=== PATIENT | female | born 1945 | race Caucasian/White ===

== ENCOUNTER 2016-12-18 12:10 | Inpatient (IN) | payer OTHER, MEDICARE ==
[~2016-12-18] VITALS: Ht 160 cm; Wt 56.2 kg
--- NOTE | 2016-12-18 12:25 | NUR ---
DR OVALLES AT THE BEDSIDE.
[2016-12-18] MEDS ORDERED: GLIM1TAB3 PO (12:30)
[2016-12-18] MEDS ORDERED: OLME20TA23 PO (12:30)
[2016-12-18] MEDS ORDERED: ACET650T10 PO (12:30)
[2016-12-18] MEDS ORDERED: ONDANSETRON 4 MG/2 ML VIAL IV ONE (12:30)
[2016-12-18] MEDS ORDERED: IV NORMAL SALINE 1000 ML BAG IV ONE (12:30)
[2016-12-18] MEDS ORDERED: AMYL1CAP58 PO (12:30)
[2016-12-18] MEDS ORDERED: METO-306 PO (12:30)
[2016-12-18] MEDS ORDERED: RANI300T4 PO (12:30)
[2016-12-18] MEDS ORDERED: COLE625T PO (12:30)
[2016-12-18] MEDS ORDERED: MORPHINE SULFATE 2 MG/1 ML DISP.SYRIN IV ONE (12:30)
[2016-12-18] MEDS ORDERED: DEXL60CA3 PO (12:30)
[2016-12-18 12:36] LABS: BASOPHILS # (AUTO) 0.1 K/uL (0.0-0.2); BASOPHILS % (AUTO) 1.2 % (0.0-2.0); EOSINOPHILS # (AUTO) 0.2 K/uL (0.0-0.7); EOSINOPHILS % (AUTO) 3.1 % (0.0-7.0); HEMATOCRIT 42.3 % (37.0-47.0); HEMOGLOBIN 13.9 g/dL (12.0-16.0); LYMPHOCYTES # (AUTO) 1.5 K/uL (0.8-4.8); LYMPHOCYTES % (AUTO) 28.4 % (20.5-51.5); MEAN CORPUSCULAR HEMOGLOBIN 30.5 uug (27.0-31.0); MEAN CORPUSCULAR HGB CONC 33 g/dL (32.0-37.0); MEAN CORPUSCULAR VOLUME 92.6 fL (81.0-99.0); MONOCYTES # (AUTO) 0.4 K/uL (0.1-1.30); MONOCYTES % (AUTO) 8.7 % (0.0-11.0); NEUTROPHILS # (AUTO) 2.9 K/uL (1.8-8.9); NEUTROPHILS % (AUTO) 58.6 % (38.5-71.5); PLATELET COUNT (AUTO) 226 K/uL (150-450); RED BLOOD CELL COUNT(AUTO) 4.57 MIL/uL (4.20-5.40); RED CELL DISTRIBUTION WIDTH 12.3 % (11.5-14.5); WHITE BLOOD COUNT (AUTO) 5.1 K/uL (4.0-11.2)
[2016-12-18 12:45] LABS: CALCIUM 9.1 mg/dL (8.5-10.1); CREATININE 0.7 mg/dL (0.6-1.3); POTASSIUM 4.2 mmol/L (3.5-5.1)
[2016-12-18 12:51] LABS: ALBUMIN 4.2 g/dL (3.4-5.0); BILIRUBIN,DIRECT 0.1 mg/dL (0.0-0.2); BILIRUBIN,TOTAL 0.5 mg/dL (0.2-1.0); TOTAL PROTEIN, SERUM 7.6 g/dL (6.4-8.2)
[2016-12-18] MEDS ORDERED: MORPHINE SULFATE 4 MG/1 ML DISP.SYRIN ONE (13:00)
[2016-12-18] MEDS ORDERED: ONDANSETRON 4 MG/2 ML VIAL ONE (13:00)
--- NOTE | 2016-12-18 13:10 | NUR ---
BELONGING LIST COMPLETED AND PLACED IN THE CHART. PT NOT CANDIDATE FOR MRSA.
[2016-12-18] MEDS ORDERED: IV D5/ 0.9% NACL 1,000 ML IV PRN (13:15)
[2016-12-18] MEDS ORDERED: ONDANSETRON 4 MG/2 ML VIAL IV PRN (13:15)
[2016-12-18] MEDS ORDERED: MORPHINE SULFATE 2 MG/1 ML DISP.SYRIN IV PRN (13:15)
[2016-12-18] MEDS ORDERED: ACETAMINOPHEN 325 MG TABLET PO PRN (13:15)
[2016-12-18] MEDS ORDERED: DEXTROSE 50% 50 ML DISP.SYRIN IV PRN (13:30)
[2016-12-18] MEDS ORDERED: INSULIN REGULAR, HUMAN 300 UNIT/3 ML VIAL SQ PRN (13:30)
--- NOTE | 2016-12-18 13:45 | NUR ---
RECEIVED PT VIA JOSE CRUZ, ADMISSION PROTOCOL FOLLOWED, PT IN NO ACUTE DISTRESS, VS STABLE AND PAIN 6/[address] NOTIFIED OF PTS ARRIVAL AND ORDERS PLACED, WILL FOLLOW THROUGH
[2016-12-18 15:22] VITALS: BP 125/77
[2016-12-18] MEDS: PANTOPRAZOLE SODIUM 40 MG VIAL IV SCH (15:23)
[2016-12-18] MEDS: POTASSIUM CHLORIDE 10 MEQ in IV D5 1/2 NS 1000 ML 1,000 ML IV PRN (16:19)
[2016-12-18] MEDS: HYDROMORPHONE 1 MG/1 ML DISP.SYRIN IV PRN ×2 (16:20→20:11)
[2016-12-18] MEDS: ONDANSETRON 4 MG/2 ML VIAL IV PRN (16:22)
[2016-12-18] MEDS ORDERED: GLIMEPIRIDE 0.5 MG PO SCH (17:00)
[2016-12-18] MEDS ORDERED: BLOOD SUGAR DIAGNOSTIC 1 EACH STRIP VI SCH (18:00)
[2016-12-18] MEDS: GLIMEPIRIDE 2 MG TABLET PO SCH (18:00)
[2016-12-18] MEDS: BLOOD SUGAR DIAGNOSTIC 1 EACH STRIP VI SCH ×2 (18:16→23:57)
[2016-12-18 18:28] LABS: *BILIRUBIN,URIN NEGATIVE (NEGATIVE); *BLOOD, URINE NEGATIVE (NEGATIVE); *CLARITY,URINE CLEAR (CLEAR); *COLOR,URINE YELLOW (YELLOW); *KETONES,URINE NEGATIVE (NEGATIVE); *PROTEIN,URINE NEGATIVE (NEGATIVE); *UROBILINOGEN,URINE 0.2 E.U./dl (NORMAL); LEUKOCYTE ESTERASE ,URINE NEGATIVE (NEGATIVE); NITRITE, URINE NEGATIVE (NEGATIVE); UGLUCOSE NEGATIVE (NEGATIVE)
--- NOTE | 2016-12-18 18:34 | NUR ---
PT RESTING IN BED, WITH FAMILY AT BEDSIDE. NO ACUTE DISTRESS, STATES ABDOMINAL PAIN IS SLOWLY RETURNING. REMAINED NPO AND ALL SAFETY AND COMFORT MEASURES MAINTAINED THROUGHOUT SHIFT. CALL LIGHT IN REACH
[2016-12-18 20:00] VITALS: BP 128/78
[2016-12-19] MEDS: ONDANSETRON 4 MG/2 ML VIAL IV PRN ×2 (02:27→14:57)
[2016-12-19] MEDS: POTASSIUM CHLORIDE 10 MEQ in IV D5 1/2 NS 1000 ML 1,000 ML IV PRN ×2 (02:31→21:44)
[2016-12-19] MEDS: HYDROMORPHONE 1 MG/1 ML DISP.SYRIN IV PRN ×4 (02:31→14:51)
[2016-12-19 04:15] VITALS: BP 110/57
--- NOTE | 2016-12-19 04:47 | NUR ---
PT IN BED, ASLEEP AROUSABLE TO TOUCH AND NAME, IN NO ACUTE SIGNS OF DISTRESS, C/O ABDOMINAL PAIN, CONTROLLED WITH DILAUDID PRESCRIBED, C/O NAUSEA, GIVEN ZOFRAN ORDERED. CONTINUE ON NPO STATUS, IVF STILL INFUSING, SITE PATENT AND INTACT. SAFETY MAINTAINED. CALL LIGHT WITHIN REACH.
[2016-12-19] MEDS: BLOOD SUGAR DIAGNOSTIC 1 EACH STRIP VI SCH ×3 (05:18→18:17)
[2016-12-19 06:53] LABS: BASOPHILS # (AUTO) 0.1 K/uL (0.0-0.2); BASOPHILS % (AUTO) 1.5 % (0.0-2.0); EOSINOPHILS # (AUTO) 0.2 K/uL (0.0-0.7); EOSINOPHILS % (AUTO) 2.7 % (0.0-7.0); HEMOGLOBIN 13.4 g/dL (12.0-16.0); LYMPHOCYTES # (AUTO) 1.6 K/uL (0.8-4.8); LYMPHOCYTES % (AUTO) 26.6 % (20.5-51.5); MEAN CORPUSCULAR HEMOGLOBIN 30.7 uug (27.0-31.0); MEAN CORPUSCULAR HGB CONC 33 g/dL (32.0-37.0); MEAN CORPUSCULAR VOLUME 94.1 fL (81.0-99.0); MONOCYTES # (AUTO) 0.5 K/uL (0.1-1.30); MONOCYTES % (AUTO) 7.8 % (0.0-11.0); NEUTROPHILS # (AUTO) 3.6 K/uL (1.8-8.9); NEUTROPHILS % (AUTO) 61.4 % (38.5-71.5); PLATELET COUNT (AUTO) 211 K/uL (150-450); RED BLOOD CELL COUNT(AUTO) 4.35 MIL/uL (4.20-5.40); RED CELL DISTRIBUTION WIDTH 12.6 % (11.5-14.5)
[2016-12-19 07:15] LABS: ALBUMIN 3.4 g/dL (3.4-5.0); BILIRUBIN,TOTAL 0.5 mg/dL (0.2-1.0); CALCIUM 8.3 mg/dL (8.5-10.1); CREATININE 0.7 mg/dL (0.6-1.3); MAGNESIUM 1.9 mg/dL (1.8-2.4); PHOSPHOROUS 1.6 mg/dL (2.5-4.9); POTASSIUM 4.7 mmol/L (3.5-5.1); TOTAL PROTEIN, SERUM 6.5 g/dL (6.4-8.2)
[2016-12-19] MEDS: GLIMEPIRIDE 2 MG TABLET PO SCH ×2 (08:00→18:00)
[2016-12-19] MEDS ORDERED: PANTOPRAZOLE SODIUM 40 MG VIAL IV ONE (09:00)
[2016-12-19] MEDS ORDERED: PANTOPRAZOLE SODIUM 40 MG VIAL IV SCH (09:00)
[2016-12-19] MEDS: PANTOPRAZOLE SODIUM 40 MG VIAL IV SCH (09:06)
[2016-12-19 11:33] VITALS: BP 100/65
--- NOTE | 2016-12-19 12:00 | NUR ---
Patient taken down to have Endoscopy. Daughter accompanying surgical staff. Patient signed consent form. IV disconnected. In no noted distress. Pain medication received. Patient comfortable at this time.
[2016-12-19] MEDS ORDERED: BARIUM SULFATE 450 ML ORAL.SUSP ONE (13:12)
[2016-12-19] MEDS ORDERED: PROPOFOL 200 MG/20 ML BOTTLE IV ONE (15:03)
[2016-12-19] MEDS ORDERED: LIDOCAINE HCL 2% 20 ML VIAL MC ONE (15:03)
[2016-12-19] MEDS ORDERED: IV LACTATED RINGERS SOLUTION 1,000 ML BAG IV ONE (15:04)
[2016-12-19] MEDS ORDERED: IV NORMAL SALINE 250 ML IV ONE (15:16)
[2016-12-19] MEDS ORDERED: IOHEXOL 300MG/ML 100 ML INFUS..BTL ONE (15:16)
[2016-12-19] MEDS ORDERED: NORMAL SALINE FLUSH 10 ML DISP.SYRIN ONE (15:16)
[2016-12-19 15:22] VITALS: BP 130/76
[2016-12-19] MEDS ORDERED: NEUTRA PHOS PACKET PO ONE (16:00)
[2016-12-19] MEDS ORDERED: SODIUM PHOSPHATE MM 15 MM in IV DEXTROSE 5% 250 ML IV ONE (17:00)
--- NOTE | 2016-12-19 18:11 | NUR ---
All oral hypoglycemics to be held for the next [address] of abdomen with contrast. Non administered.
[2016-12-19 20:00] VITALS: BP 106/66
--- NOTE | 2016-12-19 20:15 | NUR ---
Pt received laying in bed awake and comfortable. AOx4. IV fluids running in left AC, intact. Kleber any pain at this time. Lungs clear through out with auscultation. No acute distress noted. safety measures maintained.
--- NOTE | 2016-12-19 21:13 | NUR ---
pt c/o headache 01/30, refusing Dilaudid for pain. Per ok to give tylenol with small sips of water.
[2016-12-19] MEDS ORDERED: ACETAMINOPHEN 325 MG TABLET PO PRN (21:15)
[2016-12-20] MEDS: BLOOD SUGAR DIAGNOSTIC 1 EACH STRIP VI SCH ×4 (00:13→18:33)
[2016-12-20 04:44] VITALS: BP 106/67
--- NOTE | 2016-12-20 06:21 | NUR ---
Pt slept well through out the night. Pt awake once during the night and walked around unit. Pt does report having flatulence. Denies any pain at this time. Comfort measures provided.
[2016-12-20 07:19] LABS: CALCIUM 8.3 mg/dL (8.5-10.1); CREATININE 0.6 mg/dL (0.6-1.3); PHOSPHOROUS 1.5 mg/dL (2.5-4.9); POTASSIUM 3.7 mmol/L (3.5-5.1)
[2016-12-20] MEDS: GLIMEPIRIDE 2 MG TABLET PO SCH ×2 (07:39→18:00)
[2016-12-20] MEDS: PANTOPRAZOLE SODIUM 40 MG VIAL IV SCH (07:59)
[2016-12-20] MEDS: POTASSIUM CHLORIDE 10 MEQ in IV D5 1/2 NS 1000 ML 1,000 ML IV PRN (08:07)
[2016-12-20] MEDS ORDERED: BISACODYL 10 MG SUPP.RECT RC PRN (08:30)
[2016-12-20] MEDS ORDERED: FLEET ENEMA 133 ML BOTTLE RC ONE ×2 (08:30→11:45)
[2016-12-20 11:28] VITALS: BP 111/65
[2016-12-20] MEDS ORDERED: NEUTRA PHOS PACKET PO ONE (15:15)
[2016-12-20 15:45] VITALS: BP 128/73
[2016-12-20 19:00] VITALS: BP 128/76
[2016-12-21] MEDS: POTASSIUM CHLORIDE 10 MEQ in IV D5 1/2 NS 1000 ML 1,000 ML IV PRN (00:23)
[2016-12-21] MEDS: BLOOD SUGAR DIAGNOSTIC 1 EACH STRIP VI SCH ×2 (00:29→06:50)
[2016-12-21 04:00] VITALS: BP 112/68
--- NOTE | 2016-12-21 06:25 | NUR ---
END OF SHIFT NOTE: PT SLEPT INTERMITTENTLY. DENIES ANY PAIN. IN NO ACUTE SIGNS OF DISTRESS. PT STATED HAVING MODERATE SOFT BM LAST NIGHT AND PASSING GAS. PT AMBULATED IN THE HALLWAY LAST NIGHT. BLOOD SUGAR CHECKED AND RECORDED. SAFETY MAINTAINED. CALL LIGHT WITHIN REACH.
[2016-12-21 07:01] LABS: BASOPHILS % (AUTO) 1.2 % (0.0-2.0); EOSINOPHILS # (AUTO) 0.2 K/uL (0.0-0.7); EOSINOPHILS % (AUTO) 5.3 % (0.0-7.0); HEMATOCRIT 39.6 % (37.0-47.0); HEMOGLOBIN 12.9 g/dL (12.0-16.0); LYMPHOCYTES # (AUTO) 1.7 K/uL (0.8-4.8); LYMPHOCYTES % (AUTO) 40.5 % (20.5-51.5); MEAN CORPUSCULAR HEMOGLOBIN 30.6 uug (27.0-31.0); MEAN CORPUSCULAR HGB CONC 33 g/dL (32.0-37.0); MONOCYTES # (AUTO) 0.5 K/uL (0.1-1.30); MONOCYTES % (AUTO) 11.1 % (0.0-11.0); NEUTROPHILS # (AUTO) 1.7 K/uL (1.8-8.9); NEUTROPHILS % (AUTO) 41.9 % (38.5-71.5); PLATELET COUNT (AUTO) 138 K/uL (150-450); RED BLOOD CELL COUNT(AUTO) 4.21 MIL/uL (4.20-5.40); RED CELL DISTRIBUTION WIDTH 12.3 % (11.5-14.5); WHITE BLOOD COUNT (AUTO) 4.1 K/uL (4.0-11.2)
[2016-12-21 07:36] LABS: ALBUMIN 3.2 g/dL (3.4-5.0); BILIRUBIN,TOTAL 0.5 mg/dL (0.2-1.0); CALCIUM 8.2 mg/dL (8.5-10.1); CREATININE 0.6 mg/dL (0.6-1.3); MAGNESIUM 1.8 mg/dL (1.8-2.4); PHOSPHOROUS 1.6 mg/dL (2.5-4.9); POTASSIUM 3.8 mmol/L (3.5-5.1); TOTAL PROTEIN, SERUM 6.2 g/dL (6.4-8.2)
[2016-12-21 08:20] VITALS: BP 146/83
[2016-12-21] MEDS: GLIMEPIRIDE 2 MG TABLET PO SCH (08:25)
[2016-12-21] MEDS: PANTOPRAZOLE SODIUM 40 MG VIAL IV SCH (08:25)
[2016-12-21 08:55] VITALS: BP 146/83
--- NOTE | 2016-12-21 09:30 | NUR ---
PATIENT BEEN DISCHARGE HOME IN STABLE CONDITION BY DR. FERNANDEZ. NO S/S OF DISTRESS NOTED. NO C/O OF N/V OR PAIN. VERBALIZED HAVING A BM IN THE MORNING. DISCHARGE INSTRUCTIONS WERE EXPLAINED, SIGNED BY PATIENT. A COPY WAS PROVIDED.ALL BELONGINGS WERE TAKEN. ID AND IV CATHETER REMOVED. DAUGHTER CAME TO PICK HER, I ACCOMPANIED PATIENT AND DAUGHTER TO THEIR PRIVATE CAR.
== END 2016-12-21 09:30 | disposition home or self-care (01) | DRG 247 ==
LOC: ER 12:10 → MED 13:27
PROVIDERS: ADMIT Internal Medicine; ATTEND Internal Medicine
PROC: 0DJ08ZZ Inspection of Upper Intestinal Tract, Via Natural or Artificial Opening Endoscopic (ICD-10-PCS; principal; 2016-12-19 12:29)
DX: K56.60 Unspecified intestinal obstruction (principal); E11.9 Type 2 diabetes mellitus without complications; I10 Essential (primary) hypertension; K21.9 Gastro-esophageal reflux disease without esophagitis; Z85.3 Personal history of malignant neoplasm of breast; E78.5 Hyperlipidemia, unspecified; Z79.84 Long term (current) use of oral hypoglycemic drugs; Z87.891 Personal history of nicotine dependence; Z90.13 Acquired absence of bilateral breasts and nipples; R74.0 Nonspecific elevation of levels of transaminase and lactic acid dehydrogenase [LDH]; K44.9 Diaphragmatic hernia without obstruction or gangrene
CPT/HCPCS: 36415; 71010; 83690; 83735; 84100; 85025; 85730; 86301; 93005; A4663; C9113; J1170; J1815; J2270; J2405; J3480; J3490; J7030; J7050; J7060; J7120; Q9951; Q9967

== ENCOUNTER 2017-07-14 08:21 | Inpatient (IN) | payer MEDICARE, OTHER ==
[~2017-07-14] VITALS: Ht 157.5 cm; Wt 58.5 kg
[~2017-07-14 08:21] MED LIST: ACET650T10 PO; AMYL1CAP58 PO; COLE625T9 PO; DEXL60CA3 PO; GLIM1TAB3 PO; METO-306 PO; OLME20TA23 PO; RANI300T4 PO
[2017-07-14] MEDS ORDERED: MORPHINE SULFATE 4 MG/1 ML DISP.SYRIN IV ONE (08:30)
[2017-07-14] MEDS ORDERED: PANTOPRAZOLE SODIUM 40 MG VIAL IV ONE (08:30)
[2017-07-14] MEDS ORDERED: ONDANSETRON 4 MG/2 ML VIAL IV ONE (08:30)
[2017-07-14] MEDS ORDERED: IV NORMAL SALINE 1000 ML BAG IV ONE (08:30)
[2017-07-14] MEDS ORDERED: PANTOPRAZOLE SODIUM 40 MG VIAL ONE (08:48)
[2017-07-14] MEDS ORDERED: ONDANSETRON 4 MG/2 ML VIAL ONE (08:48)
[2017-07-14] MEDS ORDERED: MORPHINE SULFATE 4 MG/1 ML DISP.SYRIN ONE (08:48)
--- NOTE | 2017-07-14 08:53 | NUR ---
IV PLACED/MEDS ADMINISTERED/LABS DRAWN-SENT,/1L 0.9NS INFUSING/PT TO CT SCAN/MONITOR SHOWS NSR-PO2=97% on room air.
[2017-07-14 08:59] LABS: BASOPHILS # (AUTO) 0.1 K/uL (0.0-8.0); BASOPHILS % (AUTO) 1.1 % (0.0-2.0); EOSINOPHILS # (AUTO) 0.2 K/uL (0.0-0.7); EOSINOPHILS % (AUTO) 3.3 % (0.0-7.0); HEMATOCRIT 45.2 % (31.2-41.9); HEMOGLOBIN 15.9 g/dL (10.9-14.3); LYMPHOCYTES # (AUTO) 1.7 K/uL (20.0-40.0); LYMPHOCYTES % (AUTO) 29.6 % (20.5-51.5); MEAN CORPUSCULAR HEMOGLOBIN 32.8 uug (24.7-32.8); MEAN CORPUSCULAR HGB CONC 35 g/dL (32.3-35.6); MEAN CORPUSCULAR VOLUME 93.1 fL (75.5-95.3); MONOCYTES # (AUTO) 0.4 K/uL (2.0-10.0); MONOCYTES % (AUTO) 6.8 % (0.0-11.0); NEUTROPHILS # (AUTO) 3.5 K/uL (1.8-8.9); NEUTROPHILS % (AUTO) 59.2 % (38.5-71.5); PLATELET COUNT (AUTO) 244 K/uL (179-408); RED BLOOD CELL COUNT(AUTO) 4.86 MIL/uL (3.63-4.92); WHITE BLOOD COUNT (AUTO) 5.9 K/uL (3.8-11.8)
[2017-07-14 09:06] LABS: ALANINE AMINOTRANSFERASE 43 U/L (14-59); ALKALINE PHOSPHATASE 59 U/L (50-136); ASPARTATE AMINOTRANSFERASE 38 U/L (15-37); BILIRUBIN,DIRECT 0.1 mg/dL (0.0-0.2); BILIRUBIN,TOTAL 0.5 mg/dL (0.2-1.0); CARBON DIOXIDE 30 mmol/L (21-32); CHLORIDE 101 mmol/L (98-107); CREATININE 0.8 mg/dL (0.6-1.3); GLUCOSE 139 mg/dL (74-106); LIPASE 171 U/L (73-393); UREA NITROGEN, BLOOD 11 mg/dL (7-18)
[2017-07-14 10:37] LABS: *BILIRUBIN,URIN NEGATIVE (NEGATIVE); *BLOOD, URINE Trace-intact (NEGATIVE); *CLARITY,URINE CLEAR (CLEAR); *COLOR,URINE YELLOW (YELLOW); *KETONES,URINE NEGATIVE (NEGATIVE); *PROTEIN,URINE NEGATIVE (NEGATIVE); *UROBILINOGEN,URINE 0.2 E.U./dl (NORMAL); LEUKOCYTE ESTERASE ,URINE NEGATIVE (NEGATIVE); NITRITE, URINE NEGATIVE (NEGATIVE); PH,URINE 8.5 (5.0-8.0); UGLUCOSE NEGATIVE (NEGATIVE)
[2017-07-14 10:47] LABS: BACTERIA,URINE NONE SEEN /HPF (NONE SEEN); RBC,URINE 0-3 /HPF (0-3); SQUAMOUS EPITHELIAL CELL,UR FEW /HPF (NONE SEEN); WBC,URINE 0-3 /HPF (0-3)
--- NOTE | 2017-07-14 11:12 | NUR ---
ADMIT ORDER WRITTEN,BELONGINGS LIST DONE, SKIN ASSESSMENT COMPLETED, ADMIT DATA REPORT COMPLETED. SBAR REPORT TO KESHAWN RUBY. PT POSITIONED FOR COMFORT.
--- NOTE | 2017-07-14 11:53 | NUR ---
dr purcell spoke to ila castañeda md, [facility]
[2017-07-14] MEDS ORDERED: ZOLPIDEM 5 MG TABLET PO PRN (12:00)
[2017-07-14] MEDS ORDERED: IV NS 1000 ML 1,000 ML IV PRN (12:00)
[2017-07-14] MEDS ORDERED: ACETAMINOPHEN 325 MG TABLET PO PRN (12:00)
--- NOTE | 2017-07-14 12:13 | NUR ---
ADMIT NOTE JUST RECEIVED FROM ER VIA JOSE CRUZ A/O X4 ABLE TO MAKE NEEDS KNOWN. PLACED IN BED ORIENTED TO ROOM AND SURROUNDINGS. VERBALIZE UNDERSTANDING. ORIENTED ON USE OF CALL LIGHT AND PHONE. ASSISTED TO BR . C/O PAIN 03/02 BUT STATERS IT IS SUBSIDING AND FEELS BETTER THAN PRIOR TO MEDICATION. ALONE WITH NO FAMILY PRESENT AT THIS TIME.
[2017-07-14 12:24] VITALS: BP 131/71
[2017-07-14] MEDS: LIPASE/PROTEASE/AMYLASE 4200 UNITS CAPSULE.DR PO SCH ×2 (13:00→17:25)
[2017-07-14] MEDS: MORPHINE SULFATE 2 MG/1 ML DISP.SYRIN IV PRN ×4 (13:27→19:39)
[2017-07-14] MEDS: ONDANSETRON 4 MG/2 ML VIAL IV PRN ×2 (13:56→20:48)
[2017-07-14] MEDS ORDERED: DIATR MEGLU/DIATRIZOATE SODIUM 120 ML BOTTLE ONE (14:40)
--- NOTE | 2017-07-14 14:49 | NUR ---
DAILY NOTE DOWN TO RADIOLOLGY FOR ORDERED BARIUM SWALLOW TEST
[2017-07-14 15:01] VITALS: BP 129/70
[2017-07-14] MEDS ORDERED: MORPHINE SULFATE 2 MG/1 ML DISP.SYRIN IV ONE (19:30)
--- NOTE | 2017-07-14 19:30 | NUR ---
RECEIVED IN MENA/OX4. PT IS IN SEVERE PAIN AT THIS TIME, MEDICATE WITH MORPHINE 2MG IV X1 ORDERED BY THE OUTGOING NURSE. TELE SHOWS SR, WILL CONTINUE TO MONITOR CLOSELY.
[2017-07-14] MEDS ORDERED: MORPHINE SULFATE 4 MG/1 ML DISP.SYRIN IV PRN (19:45)
[2017-07-14] MEDS ORDERED: MORPHINE SULFATE 2 MG/1 ML DISP.SYRIN ONE (19:51)
[2017-07-14 20:00] VITALS: BP 121/75
[2017-07-15 06:00] VITALS: BP 99/60
[2017-07-15 06:21] LABS: BASOPHILS % (AUTO) 0.6 % (0.0-2.0); EOSINOPHILS # (AUTO) 0.2 K/uL (0.0-0.7); EOSINOPHILS % (AUTO) 2.7 % (0.0-7.0); HEMATOCRIT 39.4 % (37-47); HEMOGLOBIN 13.6 G/DL (12.0-16.0); LYMPHOCYTES # (AUTO) 2.2 K/UL (0.8-4.8); LYMPHOCYTES % (AUTO) 32.6 % (20.5-51.5); MEAN CORPUSCULAR HEMOGLOBIN 32.6 UUG (27.0-31.0); MEAN CORPUSCULAR HGB CONC 35 g/dL (32.0-37.0); MEAN CORPUSCULAR VOLUME 94.2 FL (81.0-99.0); MONOCYTES # (AUTO) 0.4 K/UL (0.1-1.30); MONOCYTES % (AUTO) 5.5 % (0.0-11.0); NEUTROPHILS # (AUTO) 3.9 K/UL (1.8-8.9); NEUTROPHILS % (AUTO) 58.6 % (38.5-71.5); PLATELET COUNT (AUTO) 186 K/UL (150-450); RED BLOOD CELL COUNT(AUTO) 4.19 MIL/UL (4.2-5.4); WHITE BLOOD COUNT (AUTO) 6.7 K/UL (4.0-11.2)
--- NOTE | 2017-07-15 06:34 | NUR ---
SLEPT WELL, DENIES ANY PAIN OR DISCOMFORT AT THIS TIME. WILL CONTINUE TO MONITOR CLOSELY.
[2017-07-15 06:39] LABS: ALANINE AMINOTRANSFERASE 31 U/L (14-59); ALKALINE PHOSPHATASE 47 U/L (50-136); ASPARTATE AMINOTRANSFERASE 23 U/L (15-37); BILIRUBIN,TOTAL 0.4 mg/dL (0.2-1.0); CARBON DIOXIDE 26 mmol/L (21-32); CHLORIDE 110 mmol/L (98-107); CREATININE 0.7 mg/dL (0.6-1.3); GLUCOSE 100 mg/dL (74-106); MAGNESIUM 2.1 mg/dL (1.8-2.4); PHOSPHOROUS 2.6 mg/dL (2.5-4.9); POTASSIUM 3.9 mmol/L (3.5-5.1); TOTAL PROTEIN, SERUM 5.9 g/dL (6.4-8.2); UREA NITROGEN, BLOOD 7 mg/dL (7-18)
[2017-07-15 06:54] LABS: CHOLESTEROL 132 mg/dL (<200); HDL CHOLESTEROL 61 mg/dL (40-60)
--- NOTE | 2017-07-15 07:30 | NUR ---
RECEIVED PATIENT IN BED AWAKE LERT AND ORIENTED DENIES PAIN OR DISCOMFORTS AT THIS TIME REMAIN ON IVF ORDERED WITH NO S/S OF INFILTERATION LEFT ANTECUBITAL MADE CONFORTABLE AND WILL CONTINUE TO OBSERVE.
[2017-07-15] MEDS ORDERED: GLIMEPIRIDE 2 MG TABLET PO SCH (08:00)
--- NOTE | 2017-07-15 08:30 | NUR ---
PATIENT IS NOTED TO BE STANDING BY THE SIDE OF HER BED CONNECTED TO HER IV WITH LARGE AMOUNTS OF STOOL BOTH LOOSE AND HARD ON THE FLOOR PATIENT STATED THAT SHE WAS TRYING TO GO TO THE BATHROOM BUT WAS UNABLE TO MAKE IT ON TIME.IN DISCONNECTED AND PATIENT ASSISTED INTO THE BATHROOM ASSISTED WITH CLEAN UP NEW GOWN GIVEN AND EVS AWARE FOR CLEAN UP.
[2017-07-15] MEDS: LIPASE/PROTEASE/AMYLASE 4200 UNITS CAPSULE.DR PO SCH ×2 (08:46→12:19)
[2017-07-15] MEDS ORDERED: METOPROLOL SUCCINATE XL 50 MG TAB.SR.24H PO SCH (09:00)
[2017-07-15] MEDS ORDERED: COLESEVELAM HCL 625 MG TABLET PO SCH ×2 (09:00)
[2017-07-15] MEDS ORDERED: VALSARTAN 40 MG TABLET PO SCH (09:00)
--- NOTE | 2017-07-15 09:15 | NUR ---
DUE MEDICATIONS GIVEN AND PATIENT REFUSED FOR THE IVF TO BE RESTARTED STATED THAT SHE IS DRINKING ENOUGH AND THINKS THAT THE DOCTOR WILL LET HER GO HOME TODAY.
[2017-07-15 09:18] LABS: TRIGLYCERIDES 112 MG/DL (30-150)
[2017-07-15 11:21] VITALS: BP 130/75
--- NOTE | 2017-07-15 11:51 | NUR ---
DISCHARGE ORDER RECEIVED AND PATIENT WANT HER HEPLOCK REMOVED AT THIS TIME STATED THAT SHE HAS TO WAIT FOR HER DAUGHTER TO PICK HER UP DOES NOT KNOW WHEN.DR TONY DOZIER AWARE THAT HER CURRENT TEMP IS 99.0 WITH NO NEW ORDERS AT THIS TIME
--- NOTE | 2017-07-15 12:29 | NUR ---
HEPLOCH REMOVED AND DISCHARGE INSTRUCTIONS GIVEN TO PATIENT PATIENT HAS NO NEW MEDICATIONS SHE WAS INSTRUCTED TO CONTINUE ON FULL LIQUIDS DIET AND THEN SLOWLY ADVANCE HER DIET TO SOFT TOLERATED.PATIENT EXPRESSED UNDERSTANDING AND STATED THAT HER DAUGHTER WILL BE HERE TO PICK HER UP WHEN SHE GETS OUT OF WORK.SO I TOLD HER TO JUST LET US KNOW WHEN HER DAUGHTER GETS HERE.
--- NOTE | 2017-07-15 13:20 | NUR ---
PATIENT DISCHARGED PICKED UP BY HER DAUGHTER IN SATISFACTORY CONDITION WITH ALL HER PERSONAL BELONGINGS.
--- NOTE | 2017-07-15 13:37 | NUR ---
ERROR PATIENT IS DISCHARGED AT 1320 NOT 1220.
== END 2017-07-15 12:20 | disposition home or self-care (01) | DRG 247 ==
LOC: ER 08:21 → MED 11:34
PROVIDERS: ADMIT Nurse Practitioner Acute Care; ATTEND Nurse Practitioner Acute Care
DX: K56.609 Unspecified intestinal obstruction, unspecified as to partial versus complete obstruction (principal); E11.9 Type 2 diabetes mellitus without complications; I10 Essential (primary) hypertension; Z85.3 Personal history of malignant neoplasm of breast; K21.9 Gastro-esophageal reflux disease without esophagitis; Z90.49 Acquired absence of other specified parts of digestive tract; Z88.2 Allergy status to sulfonamides; Z79.84 Long term (current) use of oral hypoglycemic drugs; E78.5 Hyperlipidemia, unspecified
CPT/HCPCS: 36415; 70030-TC; 71010; 74250; 83605; 83690; 83735; 84100; 85025; 85730; 93005; A4663; C9113; J2270; J2405; J7030; Q9963

== ENCOUNTER 2017-09-01 15:15 | Inpatient (IN) | payer OTHER, MEDICARE ==
[~2017-09-01] VITALS: Ht 154.9 cm; Wt 57.6 kg
[~2017-09-01 15:15] MED LIST changes: -COLE625T9 PO
[2017-09-01] MEDS ORDERED: ONDANSETRON 4 MG/2 ML VIAL IV ONE (16:00)
[2017-09-01] MEDS ORDERED: HYDROMORPHONE 1 MG/1 ML DISP.SYRIN IV ONE (16:00)
[2017-09-01] MEDS ORDERED: IV NORMAL SALINE 1000 ML BAG IV ONE (16:00)
[2017-09-01] MEDS ORDERED: ONDANSETRON 4 MG/2 ML VIAL ONE ×2 (16:14→22:59)
[2017-09-01] MEDS ORDERED: HYDROMORPHONE 4 MG/1 ML DISP.SYRIN ONE (16:16)
[2017-09-01 16:48] LABS: BASOPHILS # (AUTO) 0.1 K/uL (0.0-8.0); BASOPHILS % (AUTO) 0.8 % (0.0-2.0); EOSINOPHILS # (AUTO) 0.1 K/uL (0.0-0.7); EOSINOPHILS % (AUTO) 1.7 % (0.0-7.0); HEMATOCRIT 41.7 % (31.2-41.9); HEMOGLOBIN 14.7 g/dL (10.9-14.3); LYMPHOCYTES # (AUTO) 1.6 K/uL (20.0-40.0); LYMPHOCYTES % (AUTO) 22.9 % (20.5-51.5); MEAN CORPUSCULAR HGB CONC 35 g/dL (32.3-35.6); MEAN CORPUSCULAR VOLUME 93.9 fL (75.5-95.3); MONOCYTES # (AUTO) 0.4 K/uL (2.0-10.0); MONOCYTES % (AUTO) 6.2 % (0.0-11.0); NEUTROPHILS # (AUTO) 4.7 K/uL (1.8-8.9); NEUTROPHILS % (AUTO) 68.4 % (38.5-71.5); PLATELET COUNT (AUTO) 227 K/uL (179-408); RED BLOOD CELL COUNT(AUTO) 4.44 MIL/uL (3.63-4.92); WHITE BLOOD COUNT (AUTO) 6.9 K/uL (3.8-11.8)
[2017-09-01 16:57] LABS: CARBON DIOXIDE 29 mmol/L (21-32); CHLORIDE 101 mmol/L (98-107); CREATININE 0.7 mg/dL (0.6-1.3); GLUCOSE 91 mg/dL (74-106); POTASSIUM 4.3 mmol/L (3.5-5.1); UREA NITROGEN, BLOOD 11 mg/dL (7-18)
[2017-09-01 16:59] LABS: *BILIRUBIN,URIN NEGATIVE (NEGATIVE); *BLOOD, URINE NEGATIVE (NEGATIVE); *CLARITY,URINE CLEAR (CLEAR); *COLOR,URINE YELLOW (YELLOW); *KETONES,URINE NEGATIVE (NEGATIVE); *PROTEIN,URINE NEGATIVE (NEGATIVE); *UROBILINOGEN,URINE 0.2 E.U./dl (NORMAL); LEUKOCYTE ESTERASE ,URINE NEGATIVE (NEGATIVE); NITRITE, URINE NEGATIVE (NEGATIVE); UGLUCOSE NEGATIVE (NEGATIVE)
[2017-09-01 17:07] LABS: ALANINE AMINOTRANSFERASE 36 U/L (14-59); ALKALINE PHOSPHATASE 54 U/L (50-136); ASPARTATE AMINOTRANSFERASE 38 U/L (15-37); BILIRUBIN,DIRECT 0.1 mg/dL (0.0-0.2); BILIRUBIN,TOTAL 0.6 mg/dL (0.2-1.0); LIPASE 129 U/L (73-393); TOTAL PROTEIN, SERUM 7.4 g/dL (6.4-8.2)
[2017-09-01 17:12] LABS: BACTERIA,URINE NONE SEEN /HPF (NONE SEEN); RBC,URINE 0-3 /HPF (0-3); SQUAMOUS EPITHELIAL CELL,UR FEW /HPF (NONE SEEN); WBC,URINE 0-3 /HPF (0-3)
--- NOTE | 2017-09-01 18:37 | NUR ---
ATTEMPTED TO PLACE NG-TUBE AT THIS TIME. PER PT; "NOT YET I'M TALKING TO MY DAUGHTER"
--- NOTE | 2017-09-01 18:42 | NUR ---
ONCE THE PT FINISHED SPEAKING TO DAUGHTER, 2ND ATTEMPT TO INSERT NG TUBE. PT VERBALIZED "NO WAY, NO WAY. I'M NOT VOMITING!" MD LEHMAN MADE AWARE
[2017-09-01] MEDS ORDERED: FENTANYL CITRATE 100 MCG/2 ML AMPUL IV ONE (19:00)
--- NOTE | 2017-09-01 19:04 | NUR ---
REPORT GIVEN TO MONET RUBY. AWARE OF PT'S CURRENT CONDITION
[2017-09-01] MEDS ORDERED: FENTANYL CITRATE 100 MCG/2 ML AMPUL ONE (19:09)
--- NOTE | 2017-09-01 19:59 | NUR ---
Pt. admitted to [facility] , under care of Dr. GLASS Belongs List completed.
--- NOTE | 2017-09-01 20:00 | NUR ---
ADMITTED PATIENT IN MED SURG UNIT UNDER THE CARE OF DR. HARMON, BELONGINGS LIST DONE.
[2017-09-01 20:44] VITALS: BP 146/76
[2017-09-01] MEDS ORDERED: IV 1/2NS 1000 ML 1,000 ML IV PRN (20:53)
[2017-09-01] MEDS ORDERED: ACETAMINOPHEN 325 MG TABLET PO PRN (21:00)
[2017-09-01] MEDS ORDERED: MAGNESIUM HYDROXIDE 30 ML LIQUID UDC PO PRN (21:00)
[2017-09-01] MEDS ORDERED: Z GUARD REMEDY PASTE 57 GM TUBE TOP PRN (21:00)
[2017-09-01] MEDS ORDERED: ONDANSETRON 4 MG/2 ML VIAL IV PRN (21:00)
[2017-09-01] MEDS ORDERED: ZOLPIDEM 5 MG TABLET PO PRN (21:00)
[2017-09-01] MEDS: MORPHINE SULFATE 2 MG/1 ML DISP.SYRIN IV PRN (21:46)
[2017-09-01] MEDS ORDERED: MORPHINE SULFATE 2 MG/1 ML DISP.SYRIN ONE (21:59)
[2017-09-02] MEDS: MORPHINE SULFATE 2 MG/1 ML DISP.SYRIN IV PRN (02:45)
[2017-09-02] MEDS ORDERED: MORPHINE SULFATE 2 MG/1 ML DISP.SYRIN ONE (02:59)
[2017-09-02 04:18] VITALS: BP 133/75
--- NOTE | 2017-09-02 04:59 | NUR ---
PATIENT SLEPT MOST OF THE NIGHT, NO SOB NO CHEST PAIN, CONT ON PAIN MANAGEMENT OF ABDOMEN, CONTINENT OF BLADDER, ASSISTED WITH TOILETING, MEDICATED FOR NAUSEA, PATIENT REMAIN NPO AT THIS TIME. CALL LIGHT WITHIN REACH.
[2017-09-02 06:23] LABS: BASOPHILS % (AUTO) 0.4 % (0.0-2.0); EOSINOPHILS # (AUTO) 0.1 K/uL (0.0-0.7); EOSINOPHILS % (AUTO) 1.2 % (0.0-7.0); HEMATOCRIT 40.4 % (31.2-41.9); LYMPHOCYTES # (AUTO) 1.5 K/uL (20.0-40.0); LYMPHOCYTES % (AUTO) 15.9 % (20.5-51.5); MEAN CORPUSCULAR HEMOGLOBIN 32.8 uug (24.7-32.8); MEAN CORPUSCULAR HGB CONC 35 g/dL (32.3-35.6); MEAN CORPUSCULAR VOLUME 94.5 fL (75.5-95.3); MONOCYTES # (AUTO) 0.5 K/uL (2.0-10.0); MONOCYTES % (AUTO) 5.5 % (0.0-11.0); PLATELET COUNT (AUTO) 208 K/uL (179-408); RED BLOOD CELL COUNT(AUTO) 4.28 MIL/uL (3.63-4.92); WHITE BLOOD COUNT (AUTO) 9.2 K/uL (3.8-11.8)
[2017-09-02 06:41] LABS: ALANINE AMINOTRANSFERASE 26 U/L (14-59); ALKALINE PHOSPHATASE 47 U/L (50-136); ASPARTATE AMINOTRANSFERASE 28 U/L (15-37); BILIRUBIN,TOTAL 0.6 mg/dL (0.2-1.0); CARBON DIOXIDE 25 mmol/L (21-32); CHLORIDE 106 mmol/L (98-107); CHOLESTEROL 150 mg/dL (<200); CREATININE 0.7 mg/dL (0.6-1.3); GLUCOSE 118 mg/dL (74-106); HDL CHOLESTEROL 75 mg/dL (40-60); MAGNESIUM 1.9 mg/dL (1.8-2.4); PHOSPHOROUS 2.9 mg/dL (2.5-4.9); POTASSIUM 4.4 mmol/L (3.5-5.1); TOTAL PROTEIN, SERUM 6.3 g/dL (6.4-8.2); TRIGLYCERIDES 72 MG/DL (30-150); UREA NITROGEN, BLOOD 8 mg/dL (7-18)
[2017-09-02 06:42] LABS: THYROID STIMULATING HORMONE 1.243 mIU/mL (0.358-3.740)
--- NOTE | 2017-09-02 08:30 | NUR ---
AWAKE ALERT COOPERATE WELL NO PAIN OR N/V AT THIS TIME STILL KEEP NPO AND CONTINUE IVF ENC TO OOB UP AMB IN THE [address] RESTING WITH CALL LIGHT IN REACH
--- NOTE | 2017-09-02 10:00 | NUR ---
MOM GIVEN STATE PASSING GAS BUT NO BM YET
[2017-09-02 11:28] VITALS: BP 117/64
--- NOTE | 2017-09-02 12:00 | NUR ---
AMB WELL SELF NO PAIN OR N/V DR HARMON SEE PATIENT AND LAB RESULT NEW ORDER IN CHART
[2017-09-02] MEDS ORDERED: DIATR MEGLU/DIATRIZOATE SODIUM 120 ML BOTTLE ONE (12:01)
--- NOTE | 2017-09-02 13:00 | NUR ---
TO X RAY SMALL BOWEL FT VIA W/C
[2017-09-02 15:28] VITALS: BP 130/78
--- NOTE | 2017-09-02 16:30 | NUR ---
D/C INSTRUCTION REGARDING F/U WITH PMD CONTINUE HOME MEDICINE ORDER EDUCATION PK GIVEN ,VERBALIZES UNDERSTAND AND SIGNS D/C SHEET HL WAS D/C PRIOR D/C HOME
--- NOTE | 2017-09-02 18:30 | NUR ---
D/C HOME WITH HER BELONGING CONDITION STABLE NO SOB OR PAIN
[2017-09-03] MEDS ORDERED: GLIM1TAB3 PO (20:40)
[2017-09-03] MEDS ORDERED: DEXL60CA3 PO (20:40)
[2017-09-03] MEDS ORDERED: AMYL1CAP58 PO (20:40)
[2017-09-03] MEDS ORDERED: METO-306 PO (20:40)
== END 2017-09-02 18:30 | disposition home or self-care (01) | DRG 247 ==
LOC: ER 15:17 → MED 19:07
PROVIDERS: ADMIT Internal Medicine; ATTEND Internal Medicine
DX: K56.609 Unspecified intestinal obstruction, unspecified as to partial versus complete obstruction (principal); E11.9 Type 2 diabetes mellitus without complications; I10 Essential (primary) hypertension; E78.5 Hyperlipidemia, unspecified; K21.9 Gastro-esophageal reflux disease without esophagitis; Z85.3 Personal history of malignant neoplasm of breast; Z90.13 Acquired absence of bilateral breasts and nipples; Z90.49 Acquired absence of other specified parts of digestive tract; Z79.899 Other long term (current) drug therapy
CPT/HCPCS: 36415; 70030-TC; 71010; 74000; 74250; 83605; 83690; 83735; 84100; 84443; 85025; 85730; 87040; 87086; 93005; A4663; J1170; J2270; J2405; J3010; J3490; J7030; Q9963

== ENCOUNTER 2017-09-03 20:01 | Emergency (ER) | payer OTHER, MEDICARE ==
[~2017-09-03] VITALS: Ht 160 cm; Wt 56.7 kg
[2017-09-03] MEDS ORDERED: METO-306 PO (20:40)
[2017-09-03] MEDS ORDERED: DEXL60CA3 PO (20:40)
[2017-09-03] MEDS ORDERED: AMYL1CAP58 PO (20:40)
[2017-09-03] MEDS ORDERED: GLIM1TAB3 PO (20:40)
--- NOTE | 2017-09-03 21:00 | NUR ---
Patient walked into ER c/o Nausea with abdominal pain since yesterday. Patient was D/C'ed from in [facility] here yesterday and came in here for worsening pain and nausea
[2017-09-03] MEDS ORDERED: MORPHINE SULFATE 2 MG/1 ML DISP.SYRIN IV ONE (21:15)
[2017-09-03] MEDS ORDERED: ONDANSETRON 4 MG/2 ML VIAL IV ONE (21:15)
[2017-09-03] MEDS ORDERED: IV NORMAL SALINE 1000 ML BAG IV ONE (21:15)
[2017-09-03] MEDS ORDERED: PANTOPRAZOLE SODIUM 40 MG VIAL IV ONE (21:15)
[2017-09-03] MEDS ORDERED: MORPHINE SULFATE 4 MG/1 ML DISP.SYRIN ONE (21:31)
[2017-09-03] MEDS ORDERED: ONDANSETRON 4 MG/2 ML VIAL ONE (21:31)
[2017-09-03] MEDS ORDERED: PANTOPRAZOLE SODIUM 40 MG VIAL ONE (21:31)
[2017-09-03 21:39] LABS: BASOPHILS % (AUTO) 0.4 % (0.0-2.0); EOSINOPHILS # (AUTO) 0.2 K/uL (0.0-0.7); EOSINOPHILS % (AUTO) 2.2 % (0.0-7.0); HEMATOCRIT 38.1 % (31.2-41.9); HEMOGLOBIN 13.2 g/dL (10.9-14.3); LYMPHOCYTES # (AUTO) 1.5 K/uL (20.0-40.0); LYMPHOCYTES % (AUTO) 20.6 % (20.5-51.5); MEAN CORPUSCULAR HEMOGLOBIN 32.9 uug (24.7-32.8); MEAN CORPUSCULAR HGB CONC 35 g/dL (32.3-35.6); MEAN CORPUSCULAR VOLUME 94.8 fL (75.5-95.3); MONOCYTES # (AUTO) 0.5 K/uL (2.0-10.0); MONOCYTES % (AUTO) 6.8 % (0.0-11.0); NEUTROPHILS # (AUTO) 5.2 K/uL (1.8-8.9); PLATELET COUNT (AUTO) 217 K/uL (179-408); RED BLOOD CELL COUNT(AUTO) 4.02 MIL/uL (3.63-4.92); WHITE BLOOD COUNT (AUTO) 7.4 K/uL (3.8-11.8)
[2017-09-03 21:41] LABS: *BILIRUBIN,URIN NEGATIVE (NEGATIVE); *BLOOD, URINE NEGATIVE (NEGATIVE); *CLARITY,URINE CLEAR (CLEAR); *COLOR,URINE YELLOW (YELLOW); *KETONES,URINE NEGATIVE (NEGATIVE); *PROTEIN,URINE NEGATIVE (NEGATIVE); *UROBILINOGEN,URINE 0.2 E.U./dl (NORMAL); LEUKOCYTE ESTERASE ,URINE NEGATIVE (NEGATIVE); NITRITE, URINE NEGATIVE (NEGATIVE); PH,URINE 6.5 (5.0-8.0); UGLUCOSE NEGATIVE (NEGATIVE)
[2017-09-03 21:43] LABS: CARBON DIOXIDE 30 mmol/L (21-32); CHLORIDE 104 mmol/L (98-107); CREATININE 0.9 mg/dL (0.6-1.3); GLUCOSE 101 mg/dL (74-106); POTASSIUM 4.5 mmol/L (3.5-5.1); UREA NITROGEN, BLOOD 11 mg/dL (7-18)
[2017-09-03 21:43] LABS: BACTERIA,URINE FEW /HPF (NONE SEEN); RBC,URINE 0-3 /HPF (0-3); SQUAMOUS EPITHELIAL CELL,UR FEW /HPF (NONE SEEN); WBC,URINE 0-3 /HPF (0-3)
[2017-09-03 21:49] LABS: ALANINE AMINOTRANSFERASE 31 U/L (14-59); ALKALINE PHOSPHATASE 47 U/L (50-136); ASPARTATE AMINOTRANSFERASE 32 U/L (15-37); BILIRUBIN,DIRECT 0.1 mg/dL (0.0-0.2); BILIRUBIN,TOTAL 0.3 mg/dL (0.2-1.0); LIPASE 145 U/L (73-393); TOTAL PROTEIN, SERUM 6.9 g/dL (6.4-8.2)
--- NOTE | 2017-09-03 23:30 | NUR ---
patient able to tolerate 200ml of H2O with no N/V
[2017-09-03] MEDS ORDERED: LIDOCAINE VISCUS 2% 15 ML UDC MM ONE (23:45)
[2017-09-03] MEDS ORDERED: MAG HYDROX/AL HYDROX/SIMETH 30 ML LIQUID UDC PO ONE (23:45)
--- NOTE | 2017-09-03 23:52 | NUR ---
IV removed. Catheter intact and site benign. Pressure and 4x4 gauze applied to site. No bleeding noted.
--- NOTE | 2017-09-03 23:55 | NUR ---
Patient able to eat Jello with no distress noted
[2017-09-04] MEDS ORDERED: MAG HYDROX/AL HYDROX/SIMETH 30 ML LIQUID UDC ONE
[2017-09-04] MEDS ORDERED: LIDOCAINE VISCUS 2% 15 ML UDC ONE
--- NOTE | 2017-09-04 00:03 | NUR ---
Patient discharged to home in stable conditon with family taking patient home. Written and verbal after care instructions given. Patient verbalizes understanding of instructions.
[2017-09-04 00:04] VITALS: BP 118/75
== END 2017-09-04 00:05 | disposition home or self-care (01) ==
LOC: ER 20:01
DX: K56.609 Unspecified intestinal obstruction, unspecified as to partial versus complete obstruction (principal); E11.9 Type 2 diabetes mellitus without complications; E78.5 Hyperlipidemia, unspecified; I10 Essential (primary) hypertension; K21.9 Gastro-esophageal reflux disease without esophagitis; Z88.2 Allergy status to sulfonamides
CPT/HCPCS: 36415; 83690; 85025; 93005; A4663; C9113; J2270; J2405

== ENCOUNTER 2019-03-06 05:49 | Inpatient (IN) | payer OTHER, MEDICARE ==
[~2019-03-06] VITALS: Ht 157.5 cm; Wt 58.5 kg
[~2019-03-06 05:49] MED LIST changes: -METO-306 PO; +METO-358 PO
[2019-03-06] MEDS ORDERED: BYSTOLIC 10 MG (06:06)
[2019-03-06] MEDS ORDERED: PROLIA 60 MG/ML SYRINGE (06:06)
[2019-03-06] MEDS ORDERED: PROLENSA 0.07% (06:06)
[2019-03-06] MEDS ORDERED: [UNRECOGNIZED DRUG - CODE] (06:06)
[2019-03-06] MEDS ORDERED: EYE (06:06)
[2019-03-06] MEDS ORDERED: MORPHINE SULFATE 2 MG/1 ML DISP.SYRIN IV ONE (06:15)
[2019-03-06] MEDS ORDERED: ONDANSETRON 4 MG/2 ML VIAL IV ONE ×2 (06:15→08:30)
[2019-03-06] MEDS ORDERED: IV NORMAL SALINE 1000 ML BAG IV ONE (06:15)
[2019-03-06] MEDS ORDERED: ONDANSETRON 4 MG/2 ML VIAL ONE ×2 (06:21→08:35)
[2019-03-06] MEDS ORDERED: MORPHINE SULFATE 4 MG/1 ML DISP.SYRIN ONE (06:22)
[2019-03-06 06:32] LABS: HEMATOCRIT 42.8 % (31.2-41.9); HEMOGLOBIN 14.4 g/dL (10.9-14.3); MEAN CORPUSCULAR HEMOGLOBIN 31.5 uug (24.7-32.8); MEAN CORPUSCULAR HGB CONC 34 g/dL (32.3-35.6)
[2019-03-06 06:36] LABS: CARBON DIOXIDE 27 mmol/L (21-32); CHLORIDE 102 mmol/L (98-107); CREATININE 0.8 mg/dL (0.6-1.3); GLUCOSE 128 mg/dL (74-106); POTASSIUM 3.5 mmol/L (3.5-5.1); UREA NITROGEN, BLOOD 14 mg/dL (7-18)
[2019-03-06 06:37] LABS: BASOPHILS % (AUTO) 0.3 % (0.0-2.0); EOSINOPHILS # (AUTO) 0.1 K/uL (0.0-0.7); LYMPHOCYTES # (AUTO) 1.3 K/uL (20.0-40.0); LYMPHOCYTES % (AUTO) 12.5 % (20.5-51.5); MEAN CORPUSCULAR VOLUME 93.9 fL (75.5-95.3); MONOCYTES # (AUTO) 0.4 K/uL (2.0-10.0); MONOCYTES % (AUTO) 3.6 % (0.0-11.0); NEUTROPHILS # (AUTO) 8.9 K/uL (1.8-8.9); NEUTROPHILS % (AUTO) 82.6 % (38.5-71.5); PLATELET COUNT (AUTO) 239 K/uL (179-408); RED BLOOD CELL COUNT(AUTO) 4.55 MIL/uL (3.63-4.92); WHITE BLOOD COUNT (AUTO) 10.7 K/uL (3.8-11.8)
[2019-03-06 06:41] LABS: ALANINE AMINOTRANSFERASE 37 U/L (14-59); ALKALINE PHOSPHATASE 46 U/L (50-136); ASPARTATE AMINOTRANSFERASE 23 U/L (15-37); BILIRUBIN,DIRECT 0.1 mg/dL (0.0-0.2); BILIRUBIN,TOTAL 0.4 mg/dL (0.2-1.0); TOTAL PROTEIN, SERUM 7.3 g/dL (6.4-8.2)
--- NOTE | 2019-03-06 06:48 | NUR ---
Patient already seen by . Chris adminstered, fluids given. IV on Left AC 20 gauge. Patient initial chief complain of epigastric pain,nausea and vomiting.
--- NOTE | 2019-03-06 06:50 | NUR ---
Patient first line of contact is Natan Peña and can be contacted at [phone] or [phone]
[2019-03-06 06:54] LABS: LIPASE > 6000 U/L (73-393)
--- NOTE | 2019-03-06 07:29 | NUR ---
Trip number [id number] to [facility] CT scan. 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
[2019-03-06] MEDS ORDERED: ACETAMINOPHEN 325 MG TABLET PO PRN (10:00)
[2019-03-06] MEDS ORDERED: TEMAZEPAM 15 MG CAPSULE PO PRN (10:00)
[2019-03-06] MEDS ORDERED: HYDROCODONE/APAP 5-325MG TABLET PO PRN (10:00)
[2019-03-06] MEDS ORDERED: DEXTROSE 50% 50 ML DISP.SYRIN IV PRN (10:00)
[2019-03-06] MEDS ORDERED: MAGNESIUM HYDROXIDE 30 ML LIQUID UDC PO PRN (10:00)
[2019-03-06] MEDS ORDERED: MORPHINE SULFATE 2 MG/1 ML DISP.SYRIN IV PRN (10:00)
[2019-03-06] MEDS ORDERED: ONDANSETRON 4 MG/2 ML VIAL IV PRN (10:00)
[2019-03-06] MEDS ORDERED: INSULIN REGULAR, HUMAN 300 UNIT/3 ML VIAL SQ PRN (10:00)
--- NOTE | 2019-03-06 10:15 | NUR ---
RECEIVED PATIENT FROM ER IN STABLE CONDITION. PATIENT ALERT AND ORIENTED X4. NO PAIN AT THIS TIME, PATIENT REPORTING NAUSEA AND VOMITING. PATIENT ON TELE SINUS RHYTHM. BED IN LOWEST POSITION SIDE RAILS UP X2, WITH CALL LIGHT WITHIN REACH.
[2019-03-06] MEDS ORDERED: MORPHINE SULFATE 4 MG/1 ML DISP.SYRIN IV PRN (10:30)
[2019-03-06] MEDS ORDERED: BISACODYL 5 MG TABLET.DR PO ONE (10:30)
[2019-03-06] MEDS ORDERED: METOCLOPRAMIDE HCL 10 MG/2 ML VIAL IV ONE (11:00)
[2019-03-06 11:26] VITALS: BP 115/68
[2019-03-06] MEDS: ENOXAPARIN SODIUM 40 MG/0.4 ML DISP.SYRIN SQ SCH (11:39)
[2019-03-06] MEDS: IV NS 1000 ML 1,000 ML IV PRN ×2 (11:46→20:21)
[2019-03-06] MEDS: BLOOD SUGAR DIAGNOSTIC 1 EACH STRIP VI SCH ×3 (11:53→20:13)
[2019-03-06 15:30] VITALS: BP 98/54
[2019-03-06] MEDS: LIPASE/PROTEASE/AMYLASE 4200 UNITS CAPSULE.DR PO SCH (16:36)
[2019-03-06] MEDS ORDERED: Medication Not On Formulary EA (Amylase/Lipase/Protease (Creon Dr 24,000 Units Capsule) PO SCH (17:00)
--- NOTE | 2019-03-06 18:03 | NUR ---
PATIENT IN BED BED RESTING, NO DISTRESS NOTED AT THIS TIME. PATIENT SPIKED A FEVER TYLENOL GIVEN, TEMPERATURE WITHIN NORMAL PARAMETERS. PATIENT REPORTED NAUSEA AFTER ZOFRAN GIVEN. ONE TIME DOSE OF REGLAN GIVEN, NAUSEA SUBSIDED. PATIENT ALERT AND ORIENTED X4 BED IN LOWEST POSITION, SIDE RAILS UP X2, CALL LIGHT WITHIN REACH.
[2019-03-06 18:09] LABS: *BILIRUBIN,URIN NEGATIVE (NEGATIVE); *BLOOD, URINE NEGATIVE (NEGATIVE); *CLARITY,URINE CLEAR (CLEAR); *COLOR,URINE YELLOW (YELLOW); *KETONES,URINE NEGATIVE (NEGATIVE); *UROBILINOGEN,URINE 0.2 E.U./dl (NORMAL); LEUKOCYTE ESTERASE ,URINE NEGATIVE (NEGATIVE); NITRITE, URINE NEGATIVE (NEGATIVE); UGLUCOSE NEGATIVE (NEGATIVE)
--- NOTE | 2019-03-06 20:00 | NUR ---
RECEIVED PATIENT AWAKE IN BED. A/O X4. DENIES PAIN OR DISCOMFORT AT THIS TIME. NO RESP. DISTRESS NOTED. VS WNL. IVF INFUSING WELL TO LEFT AC #20 GAUGE. CALL LIGHT IN REACH. ALL NEEDS ATTENDED. WILL CONTINUE TO MONITOR AND ASSESS.
[2019-03-06 20:08] VITALS: BP 90/54
[2019-03-06] MEDS ORDERED: DOCUSATE SODIUM 100 MG CAPSULE PO SCH (21:00)
[2019-03-07] MEDS: IV NS 1000 ML 1,000 ML IV PRN (04:52)
[2019-03-07 05:17] VITALS: BP 92/53
--- NOTE | 2019-03-07 05:45 | NUR ---
PATIENT AWAKE IN BED. SLEPT WELL THROUGHOUT THE NIGHT. VSS. IVF INFUSING WELL TO LEFT AC #20 GAUGE. CALL LIGHT IN REACH. ALL NEEDS ATTENDED, WILL CONTINUE TO MONITOR AND ASSESS.
[2019-03-07 06:01] LABS: BASOPHILS % (AUTO) 0.5 % (0.0-2.0); EOSINOPHILS # (AUTO) 0.1 K/uL (0.0-0.7); EOSINOPHILS % (AUTO) 1.3 % (0.0-7.0); HEMATOCRIT 34.6 % (31.2-41.9); HEMOGLOBIN 11.6 g/dL (10.9-14.3); LYMPHOCYTES % (AUTO) 24.3 % (20.5-51.5); MEAN CORPUSCULAR HEMOGLOBIN 31.7 uug (24.7-32.8); MEAN CORPUSCULAR HGB CONC 34 g/dL (32.3-35.6); MEAN CORPUSCULAR VOLUME 94.8 fL (75.5-95.3); MONOCYTES # (AUTO) 0.3 K/uL (2.0-10.0); MONOCYTES % (AUTO) 6.3 % (0.0-11.0); NEUTROPHILS # (AUTO) 2.9 K/uL (1.8-8.9); NEUTROPHILS % (AUTO) 67.6 % (38.5-71.5); PLATELET COUNT (AUTO) 163 K/uL (179-408); RED BLOOD CELL COUNT(AUTO) 3.65 MIL/uL (3.63-4.92); WHITE BLOOD COUNT (AUTO) 4.2 K/uL (3.8-11.8)
[2019-03-07 06:25] LABS: ALANINE AMINOTRANSFERASE 24 U/L (14-59); ALKALINE PHOSPHATASE 34 U/L (50-136); AMYLASE 50 U/L (25-115); ASPARTATE AMINOTRANSFERASE 21 U/L (15-37); BILIRUBIN,TOTAL 0.4 mg/dL (0.2-1.0); CARBON DIOXIDE 25 mmol/L (21-32); CHLORIDE 109 mmol/L (98-107); CHOLESTEROL 90 mg/dL (<200); CREATININE 0.6 mg/dL (0.6-1.3); GLUCOSE 99 mg/dL (74-106); HDL CHOLESTEROL 46 mg/dL (40-60); MAGNESIUM 1.8 mg/dL (1.8-2.4); PHOSPHOROUS 1.7 mg/dL (2.5-4.9); POTASSIUM 3.6 mmol/L (3.5-5.1); THYROID STIMULATING HORMONE 0.704 mIU/mL (0.358-3.740); TOTAL PROTEIN, SERUM 5.2 g/dL (6.4-8.2); TRIGLYCERIDES 49 MG/DL (30-150); UREA NITROGEN, BLOOD 12 mg/dL (7-18)
[2019-03-07 06:40] LABS: LIPASE 132 U/L (73-393)
[2019-03-07] MEDS: BLOOD SUGAR DIAGNOSTIC 1 EACH STRIP VI SCH ×2 (06:41→11:52)
--- NOTE | 2019-03-07 07:10 | NUR ---
RECEIVED PATIENT LAYING IN BED ASLEEP COMFORTABLY, NO DISTRESS NOTED. SAFETY MEASURES PROVIDED. BED IN LOWEST POSITION, SIDE RAILS UP X2, AND CALL LIGHT WITHIN REACH.
[2019-03-07] MEDS ORDERED: NEUTRA PHOS PACKET PO ONE (07:45)
[2019-03-07] MEDS: LIPASE/PROTEASE/AMYLASE 4200 UNITS CAPSULE.DR PO SCH ×2 (08:00→12:08)
[2019-03-07] MEDS ORDERED: METOPROLOL SUCCINATE XL 50 MG TAB.SR.24H PO SCH (09:00)
[2019-03-07] MEDS ORDERED: LOSARTAN POTASSIUM 50 MG TABLET PO SCH (09:00)
[2019-03-07] MEDS: ENOXAPARIN SODIUM 40 MG/0.4 ML DISP.SYRIN SQ SCH (09:44)
[2019-03-07 11:43] VITALS: BP_SYST 100; BP_SYST 118; BP_DIAS 55; BP_DIAS 71
--- NOTE | 2019-03-07 11:50 | NUR ---
Patient blood sugar 58 patient denies IV dextrose, ok per Kody to give juice, juice given will re-evaluate blood sugar.
[2019-03-07] MEDS ORDERED: DEXTROSE 10 % IN WATER 250 ML BAG IV ONE (11:55)
[2019-03-07] MEDS ORDERED: BISA-79 PO (12:04)
--- NOTE | 2019-03-07 12:05 | NUR ---
Patient to re-evaluate blood sugar. Per CUSHION PADDER Kody to not take blood sugar because patient to be discharged.
--- NOTE | 2019-03-07 12:45 | NUR ---
Patient discharged, discharge instruction given to patient and daughters. Prescriptions given to fill. Patient medically cleared/ stable for discharge. no distress or pain noted upon discharge. Patient discharged via private car with daughter. Accompanied down to elevator with no complications.
== END 2019-03-07 12:45 | disposition home or self-care (01) | DRG 282 ==
LOC: ER 05:49 → TELE3 09:26 → MEDSURG3 10:10
PROVIDERS: ADMIT Nurse Practitioner Acute Care; ATTEND Nurse Practitioner Acute Care
DX: K85.90 Acute pancreatitis without necrosis or infection, unspecified (principal); D68.59 Other primary thrombophilia; E11.9 Type 2 diabetes mellitus without complications; I70.0 Atherosclerosis of aorta; E78.5 Hyperlipidemia, unspecified; I10 Essential (primary) hypertension; K21.9 Gastro-esophageal reflux disease without esophagitis; Z79.84 Long term (current) use of oral hypoglycemic drugs; Z90.13 Acquired absence of bilateral breasts and nipples; Z85.3 Personal history of malignant neoplasm of breast; K59.00 Constipation, unspecified; Z90.49 Acquired absence of other specified parts of digestive tract
CPT/HCPCS: 36415; 70030-TC; 71045; 83690; 83735; 84100; 84443; 85025; 85730; 87086; 93005; 97116; 97530; A4663; G0378; J1650; J1815; J2270; J2405; J2765; J3490; J7030

== ENCOUNTER 2022-06-20 23:47 | Inpatient (IN) | payer MEDICARE, OTHER ==
[~2022-06-20] VITALS: Ht 162.6 cm; Wt 53.1 kg
[~2022-06-20 23:47] MED LIST changes: +BISA-79 PO; +BYSTOLIC 10 MG; +EYE; +GLIM1TAB18 PO; -GLIM1TAB3 PO; +PROLENSA 0.07%; +PROLIA 60 MG/ML SYRINGE; +[UNRECOGNIZED DRUG - CODE]
--- NOTE | 2022-06-20 23:55 | NUR ---
Patient BIB patient's daughter from home for c/o abdominal pain with nausea since this AM.
[2022-06-21] MEDS ORDERED: IV NORMAL SALINE 1000 ML BAG IV ONE
--- NOTE | 2022-06-21 | NUR ---
Dr. Arce on bedside for MSE.
[2022-06-21 00:09] LABS: HEMATOCRIT 39.4 % (31.2-41.9); MEAN CORPUSCULAR HEMOGLOBIN 31.5 uug (24.7-32.8); PLATELET COUNT (AUTO) 271 K/uL (179-408)
--- NOTE | 2022-06-21 00:20 | NUR ---
BACK FROM CT.
[2022-06-21 00:43] LABS: ALANINE AMINOTRANSFERASE 31 U/L (14-59); ALKALINE PHOSPHATASE 44 U/L (50-136); ASPARTATE AMINOTRANSFERASE 26 U/L (15-37); BILIRUBIN,DIRECT 0.1 mg/dL (0.0-0.2); BILIRUBIN,TOTAL 0.6 mg/dL (0.2-1.0); CARBON DIOXIDE 30 mmol/L (21-32); CHLORIDE 98 mmol/L (98-107); CREATININE 0.8 mg/dL (0.6-1.3); GLUCOSE 113 mg/dL (74-106); LIPASE 117 U/L (73-393); TOTAL PROTEIN, SERUM 7.2 g/dL (6.4-8.2); UREA NITROGEN, BLOOD 13 mg/dL (7-18)
[2022-06-21] MEDS ORDERED: MORPHINE SULFATE 2 MG/1 ML DISP.SYRIN ONE ×2 (01:15→01:42)
[2022-06-21] MEDS ORDERED: MORPHINE SULFATE 2 MG/1 ML DISP.SYRIN IV ONE ×3 (01:15→02:00)
--- NOTE | 2022-06-21 01:19 | NUR ---
Epic panel call placed, spoke to Toby, he stated she will get a hold of Dr. Manning for admitting.
--- NOTE | 2022-06-21 01:23 | NUR ---
Dr. Arce on panel call with Dr. Manning. Patient accepted for admission to [facility] unit Dx. SBO.
[2022-06-21] MEDS ORDERED: hydrALAZINE HCL 20 MG/1 ML VIAL IV PRN (01:30)
[2022-06-21] MEDS ORDERED: ONDANSETRON 4 MG/2 ML VIAL IV PRN (01:30)
[2022-06-21] MEDS ORDERED: ONDANSETRON 4 MG/2 ML VIAL ONE (01:46)
[2022-06-21 01:52] LABS: *BILIRUBIN,URIN NEGATIVE (NEGATIVE); *BLOOD, URINE NEGATIVE (NEGATIVE); *CLARITY,URINE CLEAR (CLEAR); *COLOR,URINE YELLOW (YELLOW); *KETONES,URINE NEGATIVE (NEGATIVE); *UROBILINOGEN,URINE 0.2 E.U./dl (NORMAL); LEUKOCYTE ESTERASE ,URINE NEGATIVE (NEGATIVE); NITRITE, URINE NEGATIVE (NEGATIVE); PH,URINE 7.5 (5.0-8.0); UGLUCOSE NEGATIVE (NEGATIVE)
[2022-06-21] MEDS ORDERED: ONDANSETRON 4 MG/2 ML VIAL IV ONE ×2 (02:00)
--- NOTE | 2022-06-21 02:59 | NUR ---
Telephone call to [facility] unit to give report. Nurse stated still with the patient and will call back for ER report.
[2022-06-21] MEDS ORDERED: FAMOTIDINE. 20 MG/2 ML VIAL IV ONE ×2 (04:07→04:15)
--- NOTE | 2022-06-21 04:40 | NUR ---
Pt. admitted to medsurg unit, room 325, under care of Dr. Manning. Report given to TUNG Gutierrez. Belongs List completed
[2022-06-21 05:12] VITALS: BP 126/76
[2022-06-21] MEDS: MORPHINE SULFATE 2 MG/1 ML DISP.SYRIN IV PRN ×2 (05:16→09:07)
--- NOTE | 2022-06-21 06:09 | NUR ---
admitted this 78 y.o.lady w/ multiple medical history,small bowel obstruction, rosario.mastectomy,diabetes,gerd,hernia and colon resection.came from home,complaints of abdominal pain,nausea w/o vomiting.
--- NOTE | 2022-06-21 06:16 | NUR ---
alert,orientedx4, unable to do usp assessment due to severe pain,requested to be left alone at the moment.transferred to bed and repositioned comfortably. medicated w morphine iv as ordered.vital signs w/i normal limits.
--- NOTE | 2022-06-21 07:48 | NUR ---
Patient complaining of 10/10 pain. Doctor Kemar notified. Awaiting orders.
[2022-06-21] MEDS ORDERED: DIATR MEGLU/DIATRIZOATE SODIUM 30 ML BOTTLE ONE (10:09)
[2022-06-21] MEDS ORDERED: BARIUM SULFATE 340 GM ONE (10:11)
[2022-06-21 11:07] VITALS: BP 118/48
[2022-06-21] MEDS ORDERED: IV NS 1000 ML 1,000 ML IV PRN (11:30)
[2022-06-21] MEDS ORDERED: DEXTROSE 50% 50 ML DISP.SYRIN IV PRN (12:00)
[2022-06-21] MEDS: BLOOD SUGAR DIAGNOSTIC 1 EACH STRIP VI SCH ×2 (12:27→18:13)
[2022-06-21] MEDS ORDERED: LIPA1CAP21 PO (13:08)
[2022-06-21] MEDS ORDERED: NEBI20TA2 PO (13:08)
[2022-06-21] MEDS ORDERED: LOSA100T31 PO (13:09)
[2022-06-21] MEDS ORDERED: METF-494 PO (13:12)
[2022-06-21] MEDS ORDERED: ALIR150P3 SQ (13:13)
[2022-06-21] MEDS ORDERED: DENO60DI SQ (13:16)
[2022-06-21 15:17] VITALS: BP 104/63
--- NOTE | 2022-06-21 18:19 | NUR ---
Patient tolerated care well throughout shift. X-ray performed on numerous occasions to observe patient's abdomen. Patient now with no complaints of pain this evening and able to use restroom numerous times. Patient now on clear liquid diet. Bed left in lowest position with call light within reach. Comfort measures provided. Will endorse information to PM nurse.
[2022-06-21 20:00] VITALS: BP 107/55
[2022-06-22] MEDS: BLOOD SUGAR DIAGNOSTIC 1 EACH STRIP VI SCH ×2 (00:30→06:58)
[2022-06-22] MEDS: INSULIN REGULAR, HUMAN 300 UNIT/3 ML VIAL SQ PRN ×2 (00:32→06:59)
[2022-06-22 04:00] VITALS: BP 109/54
[2022-06-22 06:23] LABS: HEMATOCRIT 37.4 % (31.2-41.9); MEAN CORPUSCULAR HEMOGLOBIN 31.8 uug (24.7-32.8); PLATELET COUNT (AUTO) 220 K/uL (179-408)
[2022-06-22 06:36] LABS: BILIRUBIN,TOTAL 0.6 mg/dL (0.2-1.0); CREATININE 0.6 mg/dL (0.6-1.3); PHOSPHOROUS 2.9 mg/dL (2.5-4.9); POTASSIUM 3.9 mmol/L (3.5-5.1)
--- NOTE | 2022-06-22 08:02 | NUR ---
Awake, alert, oriented x 4, ambulatory, self care. Denies abdominal pain. IV and saline discontinued by Dr. Lamar. DC plan for today
--- NOTE | 2022-06-22 08:38 | NUR ---
RECEIVED PT ALERT AND ORIENTED X4 PT AM BLOOD SUGAR 91 NO SIGNS OF DIABETIC REACTION NOTED. PT DENIED PAIN THROUGHOUT THE SHIFT AND WAS SEEN BY DR TERESA AND WILL BE D/C TODAY AND TOOK OUT PT IV. WILL ENDORSE TO AM NURSE.
[2022-06-22] MEDS ORDERED: HEPARIN SODIUM,PORCINE 5,000 UNITS/ML VIAL SQ SCH (09:00)
[2022-06-22 11:02] VITALS: BP 112/44
--- NOTE | 2022-06-22 12:45 | NUR ---
With discharge order to home. Refused DC instruction. Went home per ambulatory in fair condition.
== END 2022-06-22 12:30 | disposition home or self-care (01) | DRG 389 ==
LOC: ER 23:54 → MEDSURG3 06-21 04:33
DX: K56.600 Partial intestinal obstruction, unspecified as to cause (principal); K50.90 Crohn's disease, unspecified, without complications; E11.9 Type 2 diabetes mellitus without complications; E78.5 Hyperlipidemia, unspecified; I10 Essential (primary) hypertension; K21.9 Gastro-esophageal reflux disease without esophagitis; Z20.822 Contact with and (suspected) exposure to COVID-19; Z79.84 Long term (current) use of oral hypoglycemic drugs; Z88.2 Allergy status to sulfonamides; Z85.3 Personal history of malignant neoplasm of breast; Z90.49 Acquired absence of other specified parts of digestive tract; K44.9 Diaphragmatic hernia without obstruction or gangrene
CPT/HCPCS: 36415; 74250; 83605; 83690; 84100; 84484; 85025; 87040; 93005; A4663; G0378; J1644; J1815; J2270; J2405; J3490; J7040; Q9963; Q9967